=== PATIENT | female | born 1980 ===

== ENCOUNTER 2019-08-23 11:00 | Outpatient (CLI) | payer MEDICAID | END 2019-08-23 11:01 | disposition home or self-care (01) | LOC: SLR 11:00 | PROVIDERS: ATTEND Otolaryngology | DX: G47.30 Sleep apnea, unspecified (principal) | CPT/HCPCS: G0399 ==

== ENCOUNTER → 2021-03-28 | Outpatient (CLI) | payer MEDICAID | END | disposition home or self-care (01) | LOC: SLR 11:00 | PROVIDERS: ATTEND Otolaryngology | DX: G47.33 Obstructive sleep apnea (adult) (pediatric) (principal); R40.0 Somnolence | CPT/HCPCS: G0399 ==